=== PATIENT | female | born 1970 | race Caucasian/White ===

== ENCOUNTER 2020-07-04 11:07 | Emergency (ER) | payer SELFPAY ==
[2020-07-04 11:18] VITALS: BP 122/85; PULSE 85; RESP 20; TEMP 37.6; O2SAT 100
--- NOTE | 2020-07-04 11:19 | ED.URI ---
HPI - URI/Sore Throat General Chief Complaint: Upper Respiratory Infection Stated Complaint: sore throat/body aches/cobos Time Seen by Provider: 07/04/20 11:30 Source: patient and RN notes reviewed Mode of arrival: ambulatory Limitations: no limitations History of Present Illness HPI Narrative: 50-year-old female who presents to [facility] care with complaints 10 day duration of headache, low grade fever, body aches,rhinitis,cough, weakness, and sore throat that started on the 13 of June, patient states that she had a negative COVID test at that time. Patient states she had been feeling well till yesterday when she developed body aches, cough, fatigue, low grade fevers, nasal drainage, and sore throat. She states that she does not have a sore throat today but other symptoms persist. Patient states that she went to [place] today and had COVID testing but does not have results yet and wants strep, flu, and mono testing done. MD elicited complaint: fever (low grade), cough, sore throat, rhinorrhea and other (headache) Pertinent past history: sinusitis, seasonal allergies and other (mono,) Onset (ago): day(s) (initially June 13 lasting 10 days, then yesterday symptoms again started) Consistency: intermittent Severity: similar to previous episodes Pain scale (0-10): 3 Description of mucous: other (white) Able to tolerate fluids by mouth: Yes Exacerbating factors: swallowing Relieving factors: nothing Associated symptoms: fever, myalgias, headache, rhinorrhea, sore throat and cough Treatments prior to arrival: acetaminophen and cold medicine Related Data Home Medications Medication Instructions Recorded Confirmed levocetirizine [Xyzal] 5 mg PO DAILY 07/04/20 07/04/20 Allergies Allergy/AdvReac Type Severity Reaction Status Date / Time iohexol Allergy Swelling Verified 07/04/20 11:28 [From contrast - CT, X-RAY] Review of Systems Review of Systems: Narrative: CONSTITUTIONAL: positive intermittent fever, chills, or sweats. EYES: Denies visual changes, redness, or discharge. ENT: positive rhinorrhea, congestion, sore throat, no otalgia. CARDIOVASCULAR: Denies chest pain, palpitations, or edema. RESPIRATORY: Positive cough no dyspnea. GASTROINTESTINAL: Denies abdominal pain, nausea, vomiting, or diarrhea. GENITOURINARY: Denies dysuria or hematuria. SKIN: Denies rash or itching. MUSCULOSKELETAL: Denies back pain, joint pain, reports joint pain PSYCHIATRIC: Denies anxiety or depression positive headaches. All systems reviewed & are unremarkable except as noted in HPI and below PMFSH Past Medical History Medical History (Updated 07/04/20 @ 12:41 by Kadi Hernández NP) Abdominal desmoid tumor Endometriosis History of mononucleosis History of shingles HSV-2 (herpes simplex virus 2) infection Surgical History Surgical History (Updated 07/04/20 @ 12:05 by Kadi Hernández NP) History of appendectomy Hx of laparoscopy Hx of tonsillectomy Social History Social History (Updated 07/04/20 @ 12:03 by Kadi Hernández NP) Smoking status: Never smoker Alcohol intake: current Living arrangements: with family Gender identity (if verbalized by the patient): Female Comments At time of signature, agree with nursing past medical, surgical, social history. There is no relevant family history pertinent to the presenting complaint Exam Narrative: Exam Narrative: GENERAL: Well-appearing, well-nourished, and in no acute distress. HEAD: Normocephalic, atraumatic. EYES: PERRLA and EOMI. ENT: Nares red clear rhinorrhea no epistaxis. Mucous membranes moist.TM's normal with good light reflex, throat mild redness with no lesions or exudates, no tonsil enlargement,post nasal drainage. NECK: Supple.no lymphadenopathy CHEST: Clear to auscultation. No respiratory distress.SAO2 100% on room air HEART: Regular rate and rhythm. No murmur heard. Normal peripheral pulses. ABDOMEN: Soft, nontender, nondistended, normal active bowel sounds.
== END 2020-07-04 12:46 | disposition home or self-care (01) ==
PROVIDERS: Emergency Provider Registered Nurse
DX: J01.40 Acute pansinusitis, unspecified (principal); N80.9 Endometriosis, unspecified
CPT/HCPCS: 36416; 86308; 87081; 87804; 87880; 99213; G0463

== ENCOUNTER 2021-01-21 11:57 | Emergency (ER) | payer OTHER, SELFPAY ==
[2021-01-21 12:06] VITALS: BP 135/85; PULSE 79; RESP 17; TEMP 36.6; O2SAT 96
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
== END 2021-01-21 15:12 | disposition home or self-care (01) ==
PROVIDERS: Emergency Provider Emergency Medicine
DX: S16.1XXA Strain of muscle, fascia and tendon at neck level, initial encounter (principal); S29.012A Strain of muscle and tendon of back wall of thorax, initial encounter; N80.9 Endometriosis, unspecified; V49.50XA Passenger injured in collision with unspecified motor vehicles in traffic accident, initial encounter
CPT/HCPCS: 99283